=== PATIENT | male | born 1995 | race Caucasian/White ===

== ENCOUNTER 2018-04-30 11:11 | Emergency (ER) | payer OTHER ==
[~2018-04-30] VITALS: Ht 180.3 cm; Wt 133.4 kg
[2018-04-30 11:37] VITALS: Ht 180.3 cm; Wt 133.4 kg
[2018-04-30 14:23] VITALS: BP 134/82
== END 2018-04-30 14:23 | disposition home or self-care (01) ==
LOC: ED 11:11
DX: M51.36 Other intervertebral disc degeneration, lumbar region (principal); M54.5 Low back pain; Z88.2 Allergy status to sulfonamides
CPT/HCPCS: J1885